=== PATIENT | male | born 1990 | race African-American/Black ===

== ENCOUNTER 2017-04-06 01:40 | Emergency (ER) | payer BC ==
--- NOTE | ~2017-04-06 | CR72 ---
[facility] A Service of [facility] & [facility] RADIOLOGY TEXT RESULTS PATIENT: DEBRA GABRIEL LOCATION: [facility] : [birth year] UNIT #: [id number] AGE: [address]: Sg Carty MD SEX: M ORDER DR: [id number] [facility] [address] [place], [place] [address] [id number] MR#: [id number] Acc #: [id number] NAME: DEBRA GABRIEL : 1990 SEX: M STUDY DATE/TIME: 04/06/2017 3:55 UNIT: [facility] ROOM: STUDY DESCRIPTION: CR Chest Single View Portable Attending Physician: Sg Carty M.D. Ordering Physician: Sg Carty M.D. Primary Care Physician: No Primary Care Physician MEDICAL IMAGING REPORT This report is preliminary unless electronic signature is present EXAM Chest x-ray 04/06/2017 HISTORY 26-year-old male in the ED complaining of new onset shortness of air and chest pain tonight prior to arrival. TECHNIQUE AP portable upright chest x-ray. FINDINGS Heart size and pulmonary vascularity are normal. The lungs are expanded and clear. No visible pulmonary infiltrate, pneumothorax or pleural effusion. IMPRESSION Negative chest. Dictated by... Micheal Jaramillo M.D. THIS IS AN ELECTRONICALLY VERIFIED REPORT Micheal Jaramillo M.D. at 04/06/2017 10:30 PM PILARW/jessy TD: 04/06/2017 08:17 JOB #: [id number] MEDICAL IMAGING REPORT Page 1 of 1 COPY
--- NOTE | ~2017-04-06 | EKG ---
PATIENT: DEBRA GABRIEL UNIT #: [id number] Ventricular Rate: 89 BPM Atrial Rate: 89 BPM P-R Interval: 188 ms QRS Duration: 92 ms Q-T Interval: 344 ms QTC Calculation(Bezet): 418 ms P [place]: 57 degrees Calculated R [place]: 82 degrees Calculated T [place]: 48 degrees Diagnosis Line: Normal sinus rhythm Diagnosis Line: Normal ECG Diagnosis Line: No previous ECGs available Diagnosis Line: Confirmed by CM LESTER MD ([id number]) on Diagnosis Line: 04/07/2017 9:43:14 AM INTERPRETING MD: TAYLER BRITO
[2017-04-06 04:28] LABS: POC - CKMB <1.0 ng/mL (0.0-7.9); POC - TROPONIN <0.05 ng/mL (<=0.05)
[2017-04-06 04:42] LABS: BASOPHIL% 0.5 % (0-2.5); DIFF IND NO; EOSINOPHIL# 0.5 X10e3 (0-0.7); EOSINOPHIL% 7.4 % (0.0-7.0); HEMATOCRIT 40.5 % (38.0-50.0); HEMOGLOBIN 13.8 gm/dL (13.0-16.0); MEAN CELL VOLUME 89.7 FL (83-96); MEAN CORPUSCULAR HEMOGLOBIN 30.7 PG (28-34); MEAN CORPUSCULAR HGB CONC 34.2 g/dL (30-36); MEAN PLATELET VOLUME 7.6 FL (6.5-11.5); MONOCYTE# 0.5 X10e3 (0-1.0); MONOCYTE% 7.2 % (3.0-12.0); NEUTROPHIL# 4.3 X10e3 (1.5-7.1); NEUTROPHIL% 57.9 % (40-75); PLATELET COUNT 213 X10e3 (140-420); RED BLOOD COUNT 4.51 X10e (3.90-5.60); RED CELL DISTRIBUTION WIDTH 14.3 % (11.0-15.5); WHITE BLOOD COUNT 7.4 X10e3 (4.0-10.5)
[2017-04-06 04:55] LABS: INFLUENZA A NEG (NEG); INFLUENZA B NEG (NEG)
[2017-04-06 05:06] LABS: CALCIUM SERUM 8.2 mg/dL (8.4-10.2); GLOM FILT RATE Estimated 121.6 mL/min (>60); POTASSIUM 3.4 mmol/L (3.5-5.1)
== END 2017-04-06 06:03 | disposition home or self-care (01) ==
LOC: CED 01:40
PROVIDERS: Emergency Medicine
DX: J45.901 Unspecified asthma with (acute) exacerbation (principal)
CPT/HCPCS: 36415; 71010; 80048; 82553; 84484; 85025; 87804; 93005; 94640; 96374; 99285; J2930